=== PATIENT | male | born 1990 | race Two or more races ===

== ENCOUNTER → 2024-08-05 | Outpatient (CLI) | payer BC, SELFPAY ==
[2024-08-05 10:27] LABS: Collection Type, Urine Clean Catch; Squamous Epithelial Cell,Urine 0 /hpf (0-5)
[2024-08-05 10:41] LABS: Basophils % (Auto) 0 % (0-2.5); Eosinophils # (Auto) 0.3 Thou/mm3 (0.0-0.5); Eosinophils % (Auto) 4 % (0-10); Hematocrit 42.7 % (41.0-53.0); Hemoglobin 14.9 g/dL (13.5-16.0); Immature Granulocytes % (Auto) 0 % (0-0); Immature Granulocytes Auto 0.03 Thou/mm3 (0.00-0.00); Lymphocytes # (Auto) 2.1 Thou/mm3 (1.0-4.8); Lymphocytes % (Auto) 29 % (10-50); Mean Corpuscular HGB Conc 34.9 g/dl (31.0-37.0); Mean Corpuscular Hemoglobin 29.2 pg (25.0-35.0); Mean Corpuscular Volume 84 fL (80-100); Monocytes # (Auto) 0.8 Thou/mm3 (0.0-0.8); Monocytes % (Auto) 11 % (0-12); Neutrophils % (Auto) 55 % (37-80); Nucleated Red Blood Cell % 0 /100 WBC (0); Platelet Count 257 Thou/mm3 (140-440); RDW Standard Deviation 36.5 fL (35.1-43.9); Red Blood Count 5.11 Miln/mm3 (4.50-5.90); White Blood Count 7.2 Thou/mm3 (3.8-10.6)
[2024-08-05 10:50] LABS: Bilirubin,Urine Negative (Negative); Blood,Urine Negative (Negative); Clarity,Urine Clear (Clear/Hazy); Color,Urine Lt-Yellow (Lt Yel-Yel); Glucose, Urine Negative (Negative); Ketones,Urine Negative (Negative); Leukocyte Esterase,Urine Negative (Negative); Nitrite,Urine Negative (Negative); PH,Urine 6.5 (5.0-7.0); Protein,Urine Negative (Neg - Trace); RBC,Urine 1 /hpf (0-3); Specific Gravity,Urine 1.016 (1.001-1.035); Urobilinogen,Urine Negative mg/dL (0.0-1.0); WBC,Urine < 1 /hpf (0-5)
[2024-08-05 10:57] LABS: Alanine Aminotransferase 43 U/L (10-49); Albumin, Serum 4.4 gm/dL (3.5-5.0); Albumin/Globulin Ratio 1.8 (1.2-2.2); Alkaline Phosphatase 75 U/L (46-116); Anion Gap 8 (7-16); Aspartate Amino Transferase 27 U/L (0-34); BUN/Creatinine Ratio 13 Ratio (12-20); Bilirubin,Total 0.8 mg/dL (0.3-1.2); Blood Urea Nitrogen 10 mg/dL (9-23); Carbon Dioxide 26.9 mMol/L (20.0-31.0); Cardiac Risk Estimate 3.7 RATIO (4.0-6.7); Chloride 104 mMol/L (98-107); Cholesterol 176 mg/dL (132-200); Creatinine (Component) 0.8 mg/dL (0.6-1.3); Globulin 2.4 gm/dL (2.3-3.5); Glucose 108 mg/dL (74-106); HDL Cholesterol 47 mg/dL (40-60); LDL Cholesterol,Calculated 103 mg/dL (0-130); Osmolality,Calculated 277 (275-295); Potassium 4.2 mMol/L (3.4-5.1); Sodium 139 mMol/L (136-145); Total Protein 6.8 gm/dL (5.7-8.2); Triglycerides 132 mg/dL (30-150); Uric Acid 7.8 mg/dL (3.7-9.2); eGFR > 60 See Note
== END | disposition home or self-care (01) ==
LOC: COPL 10:02
PROVIDERS: PCP Family Medicine; Referring Provider Family Medicine; Visit Provider Family Medicine
DX: Z00.00 Encounter for general adult medical examination without abnormal findings (principal); E66.01 Morbid (severe) obesity due to excess calories; E78.2 Mixed hyperlipidemia; E79.0 Hyperuricemia without signs of inflammatory arthritis and tophaceous disease; I10 Essential (primary) hypertension
CPT/HCPCS: 36415; 80053; 80061; 81001; 84550; 85025

== ENCOUNTER 2024-09-21 23:09 | Emergency (ER) | payer BC, SELFPAY ==
[2024-09-21 23:10] VITALS: BMI 40.6
[2024-09-22 00:29] VITALS: BP 138/88; PULSE 81; RESP 18; TEMP 36.7; O2SAT 96
--- NOTE | 2024-09-22 01:02 | PD.EDRME ---
Rapid Medical Screening Exam RME Arrival date/time: 09/21/24 23:09 Chief Complaint: Animal Bite Time Seen by Provider: 09/22/24 00:42 Vital signs: Vital Signs Temperature 98.1 F 09/22/24 00:29 Pulse Rate 81 09/22/24 00:29 Respiratory Rate 18 09/22/24 00:29 Blood Pressure 138/88 H 09/22/24 00:29 Pulse Oximetry (%) 96 09/22/24 00:29 Oxygen Delivery Method Room Air 09/22/24 00:29 Vital signs reviewed by provider: Yes RME Narrative: 34-year-old male presents to the ED with a complaint of right knee possible spider bite . He has had increasing pain and redness extending down to his mid lower leg. He has had fever, chills, fatigue, and bodyaches. Labs ordered and pending. I have greeted and performed a focused initial assessment of this patient. A comprehensive ED assessment and evaluation of the patient, analysis of all test results, and completion of the medical decision making process will be conducted by additional ED providers.
[2024-09-22 01:46] LABS: Lactate (Lactic Acid) 0.8 mMol/L (0.4-2.0)
[2024-09-22 01:55] LABS: Basophils % (Auto) 0 % (0-2.5); Eosinophils # (Auto) 0.4 Thou/mm3 (0.0-0.5); Eosinophils % (Auto) 3 % (0-10); Hematocrit 42.4 % (41.0-53.0); Hemoglobin 15.1 g/dL (13.5-16.0); Immature Granulocytes % (Auto) 0 % (0-0); Immature Granulocytes Auto 0.03 Thou/mm3 (0.00-0.00); Lymphocytes # (Auto) 2.3 Thou/mm3 (1.0-4.8); Lymphocytes % (Auto) 21 % (10-50); Mean Corpuscular HGB Conc 35.6 g/dl (31.0-37.0); Mean Corpuscular Hemoglobin 29.6 pg (25.0-35.0); Mean Corpuscular Volume 83 fL (80-100); Monocytes # (Auto) 1.4 Thou/mm3 (0.0-0.8); Monocytes % (Auto) 13 % (0-12); Neutrophils # (Auto) 6.8 Thou/mm3 (1.8-7.7); Neutrophils % (Auto) 63 % (37-80); Nucleated Red Blood Cell % 0 /100 WBC (0); Platelet Count 218 Thou/mm3 (140-440); RDW Standard Deviation 36.9 fL (35.1-43.9); White Blood Count 10.9 Thou/mm3 (3.8-10.6)
[2024-09-22 02:06] LABS: Alanine Aminotransferase 33 U/L (10-49); Albumin, Serum 4.8 gm/dL (3.5-5.0); Albumin/Globulin Ratio 1.8 (1.2-2.2); Alkaline Phosphatase 91 U/L (46-116); Anion Gap 8 (7-16); Aspartate Amino Transferase 15 U/L (0-34); BUN/Creatinine Ratio 9 Ratio (12-20); Bilirubin,Total 0.8 mg/dL (0.3-1.2); Blood Urea Nitrogen 9 mg/dL (9-23); C-Reactive Protein 8.2 mg/dL (0.0-0.9); Calcium 8.9 mg/dL (8.3-10.6); Calcium (Corrected) 8.9 mg/dL (8.5-10.1); Carbon Dioxide 26.1 mMol/L (20.0-31.0); Chloride 105 mMol/L (98-107); Estimated Creatinine Clearance 147.3 mL/min (>60); Globulin 2.7 gm/dL (2.3-3.5); Glucose 115 mg/dL (74-106); Osmolality,Calculated 277 (275-295); Sodium 139 mMol/L (136-145); Total Protein 7.5 gm/dL (5.7-8.2); eGFR > 60 See Note
[2024-09-22 04:10] VITALS: BP 135/88; PULSE 94; RESP 18; TEMP 36.7; O2SAT 96
--- NOTE | 2024-09-22 04:15 | EDNOTE_ITS ---
ED General RME/HPI General Chief complaint: Animal Bite Stated complaint: POSS SPIDER BITE ON RT KNEE Time Seen by Provider: 09/22/24 00:42 Arrival date/time: 09/21/24 23:09 RME / HPI RME / HPI narrative: 34-year-old male presents to the ED with a complaint of right knee possible spider bite . He has had increasing pain and redness extending down to his mid lower leg. He has had fever, chills, fatigue, and bodyaches. Labs ordered and pending. Related Data Previous Rx's ?Medication ?Instructions ?Recorded ibuprofen 600 mg tablet 600 mg PO Q8H PRN fever or p ain 09/22/24 #30 tabs Allergies Allergy/AdvReac Type Severity Reaction Status Date / Time No Known Allergies Allergy Verified 11/27/24 12:17 Review of Systems Review of Systems Systems Reviewed: All systems reviewed, normal except as documented Past Medical History Social History SMOKING STATUS: Never smoker ED Exam Narrative Physical exam: A&O, afebrile and non-toxic appearing 34 year old male, no acute distress. Lung are clear, RRR, Abdomen is non-distended. Right lower knee area with erythema, warmth, and tenderness. No pain with flexion or extension of the knee. Non circumferential erythema extends down to mid lower leg. CMS intact distally. Course Course Course Narrative: Vital signs stable. CBC abnormalities: WBC 10.9. Lactic normal. CRP elevated 8.2. BC pending. CMP anbormalities: glucose 115. Patient given Clindamycin 300mg PO. Quality Measures none Orders Category Date Time Status Blood Culture (Lab) Stat Lab 09/22/24 01:35 Completed CBC Stat Lab 09/22/24 01:35 Completed CMP [Comprehensive Metabolic Panel] Stat Lab 09/22/24 01:35 Completed CRP [C-Reactive Protein] Stat Lab 09/22/24 01:35 Completed Lactate (Lactic Acid) Stat Lab 09/22/24 01:35 Completed Clindamycin [Cleocin] Med 09/22/24 04:10 Discontinued 300 mg PO X1 ONE Vital Signs Vital signs: Vital Signs Temperature 98.1 F 09/22/24 00:29 Pulse Rate 81 09/22/24 00:29 Respiratory Rate 18 09/22/24 00:29 Blood Pressure 138/88 H 09/22/24 00:29 Pulse Oximetry (%) 96 09/22/24 00:29 Oxygen Delivery Method Room Air 09/22/24 00:29 Discharge Plan Plan Patient Disposition: HOME (Self Care) Discharge Disposition comment: Stable Prescriptions/Referrals Prescriptions/Med Rec: New ibuprofen 600 mg tablet 600 mg PO Q8H PRN (Reason: fever or pain) Qty: 30 0RF Referrals: Ollie Nicholas MD [Primary Care Provider] - In 1 week Problem List Clinical Impression: Cellulitis and abscess of leg Patient/Caregiver Discharge Instructions Education Materials: ED Abscess Antibiotic ..., ED Cellulitis Additional Instructions: Take the antibiotics as prescribed and complete the course even though you may be feeling better. Follow-up with your primary care physician in 24 to 48 hours. Return to the ED for any new or worsening symptoms. These include worsening fever, pain, increasing redness or swelling, or redness extending further up the leg. 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 Weldon [facility] Narrative [facility] hospital course: 34-year-old male presents to the ED with a complaint of right knee possible spider bite . He has had increasing pain and redness extending down to his mid lower leg. He has had fever, chills, fatigue, and bodyaches. A&O, afebrile and non-toxic appearing 34 year old male, no acute distress. Lung are clear, RRR, Abdomen is non-distended. Right lower knee area with erythema, warmth, and tenderness. No pain with flexion or extension of the knee. Non circ umferential erythema extends down to mid lower leg. CMS intact distally. Vital signs stable. CBC abnormalities: WBC 10.9. Lactic normal. CRP elevated 8.2. BC pending. CMP anbormalities: glucose 115. Patient given Clindamycin 300mg PO. Symptoms, exam and diagnostic studies are consistent with: Cellulitis. Patient discharge home in stable condition. Patient/family advised to follow-up with their PCP in 24-48 hours. Encouraged to return to the ED for any new or worsening symptoms. Clinical Information Provided by patient Medical Records Reviewed None Meds/Rx Considered, not Ordered None Labs/Rad/Tests considered, not Ordered None Chronic Illness/Social Conditions which may negatively complicate care or outcome(s)-explain: None or not applicable EKG EKG not done Lab Interpretation Labs: interpreted by me Lab(s) interpretation(s): As above Imaging Imaging interpretation: none Medication Administration(s) Medication Administration History Discontinued Medications Clindamycin HCl (Clindamycin 150 Mg Capsule) 300 mg PO X1 ONE Stop: 09/22/24 04:11 Last Admin: 09/22/24 04:19 Dose: 300 mg Documented By: KF As above Diagnosis Differential diagnosis: Cellulitis, abscess, septic joint Most likely dx, and/or detailed dx discussion: Cellulitis Dispositon Disposition: Discharge Home Disposition comments: Stable for discharge
[2024-09-22] MEDS: CLINDAMYCIN 150 MG CAPSULE 300 MG PO (04:19)
== END 2024-09-22 04:24 | disposition home or self-care (01) ==
PROVIDERS: Physician Assistant; Emergency Provider Emergency Medicine; PCP Family Medicine
DX: L02.415 Cutaneous abscess of right lower limb (principal); L03.115 Cellulitis of right lower limb
CPT/HCPCS: 36415; 80053; 83605; 85025; 86140; 87040; 99283; A9270